=== PATIENT | female | born 1980 | race Caucasian/White ===

== ENCOUNTER 2020-07-17 17:33 | Outpatient (REF) | payer MEDICAID, SELFPAY ==
[2020-07-17 19:25] LABS: TSH (W/Ref FT4) 0.75 uIU/mL (0.36-3.74)
== END 2020-07-17 17:53 ==
LOC: NCHCN 17:33
PROVIDERS: PCP Internal Medicine; Visit Provider Nurse Practitioner Family
DX: F45.8 Other somatoform disorders (principal)
CPT/HCPCS: 84443

== ENCOUNTER 2020-08-08 11:02 | Outpatient (REF) | payer MEDICAID, SELFPAY ==
[2020-08-14 06:28] LABS: SARS-CoV-2 Specimen Source Nasal
[2020-08-14 08:15] LABS: SARS-CoV-2 RNA Detected (Undetected)
== END 2020-08-08 11:22 ==
LOC: NCHCN 11:02
PROVIDERS: PCP Internal Medicine; Visit Provider Physician Assistant
DX: Z20.828 Contact with and (suspected) exposure to other viral communicable diseases (principal)
CPT/HCPCS: U0003

== ENCOUNTER 2020-12-31 13:57 | Outpatient (REF) | payer MEDICAID, SELFPAY ==
[2020-12-31 15:42] LABS: Calculated LDL 104 mg/dL (<100); Cholesterol 184 mg/dL (<200); HDL Cholesterol 69 mg/dL (40-60); Triglyceride 55 mg/dL (<150)
== END 2020-12-31 13:58 | disposition home or self-care (01) ==
LOC: NCHCN 13:57
PROVIDERS: PCP Internal Medicine; Visit Provider Family Medicine
DX: Z13.220 Encounter for screening for lipoid disorders (principal)
CPT/HCPCS: 80061

== ENCOUNTER 2022-06-02 10:45 | Outpatient (REF) | payer BC, MEDICAID, SELFPAY ==
--- NOTE | 2022-06-02 10:00 | SKI_PTH ---
PATIENT: Wanda Jara LOC: [facility] U#:[id number] AGE/SX: 41/F ROOM: RE06/02/[address]: Kyree Higgins : 1980 BED: DIS: 06/02/2022 SPEC #: [id number] RECD: 06/02/22 18:38 STATUS: SHERYL REQ #: [id number] ANDERSON: 06/02/22 10:[address] RECD BY: Margie García ENTERED: 06/02/22 18:38 SP TYPE: FIDEL DANG DR: Ochoa Suárez Tissues: 1 - SKIN BIOPSY(SHAVE/PUNCH) Procedures: SKIN LEVEL 4 Comments: [id number]
== END 2022-06-02 10:46 | disposition home or self-care (01) ==
LOC: LBN 10:45
PROVIDERS: PCP Internal Medicine; Visit Provider Nurse Practitioner Family
DX: L82.0 Inflamed seborrheic keratosis (principal)
CPT/HCPCS: 88305

== ENCOUNTER 2025-06-20 17:42 | Outpatient (REF) | payer BC, SELFPAY ==
[2025-06-22 13:45] LABS: Bacterial Vaginosis (BV) Negative (Negative); Candida glabrata Negative (Negative); Candida species group Positive (Negative)
== END 2025-06-20 17:43 | disposition home or self-care (01) ==
LOC: NCHCN 17:42
PROVIDERS: PCP Internal Medicine; Visit Provider Nurse Practitioner Family
DX: N89.8 Other specified noninflammatory disorders of vagina (principal)
CPT/HCPCS: 81513; 87481; 87661